=== PATIENT | female | born 1945 | race Caucasian/White ===

== ENCOUNTER → 2016-06-27 | Outpatient (CLI) | payer MEDICARE, OTHER ==
[~2016-06-27] MED LIST: ROPIVACAINE 1% 10 MG/ML (NAROPIN) 10 ML AMPUL ONE; SODIUM CHLORIDE VIAL (PF) 10 ML IV ONE; methylPREDNISolone 80 MG/ML (DEPO MEDROL) VIAL IM ONE
== END ==
LOC: PMC 11:07
PROVIDERS: ATTEND Internal Medicine
DX: M54.16 Radiculopathy, lumbar region (principal)
CPT/HCPCS: 62322; J1040; J2795; J7050

== ENCOUNTER → 2016-07-04 | Outpatient (CLI) | payer MEDICARE, OTHER | LOC: LAB 07:38 | PROVIDERS: ATTEND Internal Medicine | DX: M54.16 Radiculopathy, lumbar region (principal) | CPT/HCPCS: 36415; 82565; 84520 ==

== ENCOUNTER → 2016-07-05 | Outpatient (CLI) | payer MEDICARE, OTHER | LOC: RAD 08:21 | PROVIDERS: ATTEND Internal Medicine | DX: M54.16 Radiculopathy, lumbar region (principal); M51.36 Other intervertebral disc degeneration, lumbar region | CPT/HCPCS: 72158; A9579 ==

== ENCOUNTER → 2016-07-10 | Outpatient (CLI) | payer MEDICARE, OTHER ==
[~2016-07-10] MED LIST changes: +AML5T PO; +AMOX1TAB12 PO; +AMOX875T47 PO; +ASPI-345 PO; +ATOR40TA59 PO; +BACL10TA PO; +CALC-697 PO; +CALC600T12 PO; +CELE200C PO; +CEPH250T PO; +CHOL10002 PO; +CLOP75TA3 PO; +CLOT15CR6; +CQ 10 PO; +CYAN100072 PO; +CYCL1DRO2 PO; +DILT120C PO; +EST.1TD PO; +ESTR0.5T PO; +ESTR1TAB24 PO; +GABA300T24 PO; +GFN600TCR PO; +GUAI120013 PO; +HYDR-3811 PO; +ISOS20TA5 PO; +LOSA100T8 PO; +MAGN100T6 PO; +MGX400T PO; +MNTL10T PO; +MV,C1TAB21 PO; +NF-VITB12 PO; +NITR0.4T SL; +OMEP20TA PO; +OMG1KC PO; +PRED20TA PO; +PRM25T PO; +RANI150T15 PO; +RANITIDINE PO; -ROPIVACAINE 1% 10 MG/ML (NAROPIN) 10 ML AMPUL ONE; +SERT50TA9 PO; -SODIUM CHLORIDE VIAL (PF) 10 ML IV ONE; +SULF-221 PO; +TRAZ-28 PO; +TRAZADONE PO; +TRM50T PO; +UBID1CAP51 PO
--- NOTE | 2016-07-10 15:21 | PAIN MANAGEMENT ---
Date of note: 07/10/2016 PROCEDURE: Epidural steroid injection L5-S1 under fluoroscopy. FLUOROSCOPY EXPOSURE: 28 seconds. This is a 70-year-old patient of Dr. Gurvinder Stoll. The patient presents with spinal stenosis. She is having discomfort in the low back area in the dermatome level on the left side of L5 in particular. She was previously given a block by Michael Land CRNA for caudal approach which did not provide any relief for her. She has been on Plavix and has been off of it for 5 days. I asked her to resume her Plavix tomorrow when she takes it in the morning. Informed consent was achieved. She was taken under fluoroscopy guidance and an epidural provided at L5-S1. Orders for procedure verified. Patient denies any bleeding tendencies. After informed consent obtained, the patient was positioned for the lumbar epidural steroid injection. The area was prepped and draped using aseptic technique. The skin and overlying tissues were localized using 3 mL of 1% Preservative-Free lidocaine using a 25-gauge 1.5-inch needle. A 20-gauge Tuohy needle was advanced, using "loss of resistance" technique, to the epidural space. No blood, cerebral spinal fluid, pain, or paresthesia noted on entry of the epidural space. A 1 mL solution of Depo-Medrol 80 mg was injected slowly without mass volume effect. The patient was placed in supine position 15 minutes prior to being released with proper leg strength and vitals. Pre- and post procedure vital signs stable with no sensory or motor deficit noted. Instruction on followup contact and care provided to the patient. After the block was provided Janae asked me if her back pain could have anything to do with her recent difficulty with urinary incontinence and with bowel movement. Upon further visitation with Janae, it is apparent that this started happening about the time she started having this back pain. I tried to get a hold of Dr. Stoll's office however they are closed for a period of time now, and I will try to get a hold of whomever is covering for him in the meantime. I explained to Janae that I believe she would be well advised to see a neurosurgeon as quickly we can get her in and I will explain to the person following Dr. Stoll's patients the same thing.
--- NOTE | 2016-07-11 12:35 | Progress Note (E) ---
Progress Note Dr. Go examined Janae today and has determined a nuerosurgical consult is advisable. Aston Garcia CRNA Jul 11, 2016 12:35
--- NOTE | 2016-07-15 10:09 | Progress Note (E) ---
Progress Note Janae called yesterday. She continues to have pain and continency issues. She has a nuero appointment the end of this month. I asked her to contact Dr. Stoll today and see if he could get her appointment sooner. Aston Escalera CRNA Jul 15, 2016 10:09
== END ==
LOC: PMC 13:21
PROVIDERS: ATTEND Internal Medicine
DX: M48.07 Spinal stenosis, lumbosacral region (principal); R32 Unspecified urinary incontinence; I10 Essential (primary) hypertension; I25.10 Atherosclerotic heart disease of native coronary artery without angina pectoris; K21.9 Gastro-esophageal reflux disease without esophagitis

== ENCOUNTER → 2016-07-24 | Outpatient (CLI) | payer MEDICARE, OTHER ==
[~2016-07-24] MED LIST changes: -methylPREDNISolone 80 MG/ML (DEPO MEDROL) VIAL IM ONE
[2016-07-24 09:04] LABS: BASOPHILS % (AUTO) 0 % (0-2); EOSINOPHILS # (AUTO) 0.1 10^3uL; EOSINOPHILS % (AUTO) 1 % (0-4); LYMPHOCYTES # (AUTO) 1.1 X10^3; MEAN CORPUSCULAR HGB CONC 33.5 g/dL (31.0-37.0); MEAN CORPUSCULAR VOLUME 94 FL (80-100); MEAN PLATELET VOLUME 10.3 FL (6.0-9.5); MONOCYTES # (AUTO) 0.5 X10^3; MONOCYTES % (AUTO) 11 % (3-11); NEUTROPHILS # (AUTO) 2.9 X10^3; NEUTROPHILS % (AUTO) 64 % (51-67); PLATELET COUNT 145 10^3uL (150-450)
[2016-07-24 09:53] LABS: MEAN CORPUSCULAR HEMOGLOBIN 31.4 PG (26.0-34.0)
[2016-07-24 10:35] LABS: ALBUMIN 4.2 g/dL (3.4-5.0); ANION GAP 14.9 MEQ/L (3-15)
== END ==
LOC: LAB 08:33
PROVIDERS: ATTEND Internal Medicine
DX: Z00.00 Encounter for general adult medical examination without abnormal findings (principal); K21.9 Gastro-esophageal reflux disease without esophagitis; I10 Essential (primary) hypertension; E78.4 Other hyperlipidemia; I25.10 Atherosclerotic heart disease of native coronary artery without angina pectoris
CPT/HCPCS: 36415; 80053; 80061; 84443; 85025

== ENCOUNTER → 2016-07-25 | Outpatient (CLI) | payer MEDICARE, OTHER ==
[2016-07-25 22:46] LABS: VITAMIN B 12 854 pg/mL (213-816)
== END ==
LOC: LAB 09:46
PROVIDERS: ATTEND Electrodiagnostic Medicine
DX: R32 Unspecified urinary incontinence (principal); M54.30 Sciatica, unspecified side
CPT/HCPCS: 36415; 82607; 82746; 82784; 84155; 85652; 86038; 86334

== ENCOUNTER → 2016-07-26 | Outpatient (CLI) | payer MEDICARE, OTHER ==
--- NOTE | 2016-07-26 13:52 | Diagnostic Imaging Report ---
PROCEDURE: MR imaging cervical spine with and without contrast. TECHNIQUE: Multiplanar and multisequence MRI of the cervical spine was performed with and without contrast. INDICATION: Neck pain. Radiculopathy. COMPARISON: CT cervical spine without contrast from 10/05/2015. FINDINGS: Examination is limited by motion artifact, particularly on the axial sequences. Normal alignment of the cervical spine. Vertebral body heights are maintained. Qpbjmtyx-pe-xydnjvma scattered degenerative endplate changes. Bone marrow signal is unremarkable. No abnormal signal or enhancement in the cervical cord. The visualized paravertebral soft tissues are unremarkable. The cervical carotid and vertebral artery flow voids are preserved. C2-C3: No spinal canal or neural foraminal narrowing. C3-C4: Central disc osteophyte complex results in moderate spinal canal narrowing where it indents the ventral cervical cord. Uncovertebral and facet arthropathy contribute to mild right neural foraminal narrowing. No left neural foraminal narrowing. C4-C5: Central disc osteophyte complex results in moderate spinal canal narrowing where it indents the ventral cervical cord. No substantial neural foraminal narrowing. C5-C6: Posterior disc osteophyte complex results in oxujmkqn-ne-eltbaboo spinal canal narrowing where it flattens the ventral cervical cord. Uncovertebral and facet arthropathy contributes to mild right neural foraminal narrowing. C6-C7: Posterior disc osteophyte complex results in moderate spinal canal narrowing where it indents the left ventral cervical cord. Uncovertebral and facet arthropathy also contribute to mild left neural foraminal narrowing. C7-T1: No substantial spinal canal or neural foraminal narrowing. IMPRESSION: 1. 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 This is most marked at C5-C6 where it is moderate to advanced. There is no abnormal signal or enhancement within the cervical cord. 2. Scattered mild neural foraminal narrowing, detailed above. Dictated by: Dictated on workstation # [id number]
== END ==
LOC: RAD 11:19
PROVIDERS: ATTEND Electrodiagnostic Medicine
DX: R32 Unspecified urinary incontinence (principal); M54.30 Sciatica, unspecified side
CPT/HCPCS: 72156; A9579

== ENCOUNTER 2016-07-27 10:03 | Emergency (ER) | payer MEDICARE, OTHER ==
[~2016-07-27] VITALS: Ht 160 cm; Wt 69.1 kg
[~2016-07-27 10:03] MED LIST changes: -PRED20TA PO; -PRM25T PO
[2016-07-27 10:07] VITALS: BP 150/91
[2016-07-27] MEDS ORDERED: predniSONE 20 MG (DELTASONE) TABLET PO ONE (10:40)
[2016-07-27] MEDS ORDERED: PROMETHAZINE 25 MG/ML (PHENERGAN) 1 ML VIAL IM ONE (10:40)
[2016-07-27] MEDS ORDERED: HYDROmorphone 2 MG/ML (DILAUDID) 1 ML SYRINGE IM ONE (10:40)
[2016-07-27] MEDS ORDERED: PRED20TA PO (10:44)
[2016-07-27] MEDS ORDERED: PRM25T PO (10:44)
[2016-07-27] MEDS ORDERED: HYDR-3811 PO (10:44)
== END 2016-07-27 11:10 | disposition home or self-care (01) ==
LOC: EDUNIT# 10:03 → ED 10:05
DX: M54.42 Lumbago with sciatica, left side (principal); M48.06 Spinal stenosis, lumbar region
CPT/HCPCS: 96372; 99282; A9270; J1170; J2550; 99283

== ENCOUNTER → 2016-07-27 | Outpatient (CLI) | payer MEDICARE, OTHER ==
[2016-07-27 10:09] VITALS: BP 140/70
--- NOTE | 2016-07-27 10:09 | Urgent Care T Sheet Gen (E) ---
Intake General Temperature (Fahrenheit): 99.1 Pulse: 86 Blood Pressure Systolic: 140 Blood Pressure Diastolic: 70 Respirations: 20 SPO2: 97 Description of Symptoms Pt presents with . Pt describes pain that starts in buttocks and radiates down leg. Denies fever, redness or warmth. Pt unable to get in a comfortable position on exam table. Pt rates pain 10/10. As pt describes her symptoms and severe pain, it is evident that she needs pain relief that our facility can not provide. Discussed this with patient and , both agree that she would be better served at the Emergency Department. will drive pt to emergency department. Source: Family, Patient History of Present Illness Onset & Duration: Months Timing: Worse Severity: Severe Modifying Factors: None Associated Symptoms: None Location: Buttocks and radiates to her foot Recent Trauma: No Similar Sympotms Previously: No Allergies: Coded Allergies: lisinopril (Verified Allergy, Unknown, 10/06/15) Home Meds Active Scripts Sulfamethoxazole/Trimethoprim (Sulfamethoxazole/Trimethoprim DS 800mg/160mg)1 Each Tablet1 Each PO BID #14 TAB Prov:JERE ULLOA 02/08/16 Reported Medications Guaifenesin (Mucinex)1,200 Mg Tbmp.12hr1,200 Mg PO DAILY 12/11/15 Sertraline HCl 50 Mg Yghcgu893 Mg PO DAILY 10/06/15 Estradiol 0.5 Mg Tablet0.5 Mg PO DAILY 09/27/15 Ranitidine HCl (Zantac)150 Mg Eoeyoh313 Mg PO DAILY 01/06/15 Magnesium Citrate 100 Mg Vxnhsn903 Mg PO DAILY 01/06/15 Cyanocobalamin (Vitamin B-12) (B-12)1,000 Mcg Tablet.er1,000 Mcg PO DAILY 01/06/15 Ubidecarenone/Vit E Acetate (Co Q-10 100 mg Softgel)1 Each Capsule1 Each PO DAILY 01/06/15 Trazodone HCl 50 Mg Mmkamu00 Mg PO HS 01/06/15 Isosorbide Mononitrate 20 Mg Ulyiya61 Mg PO BID 11/23/14 Amlodipine Besylate 5 Mg Tablet5 Mg PO DAILY 11/23/14 Clopidogrel Bisulfate (Plavix)75 Mg Tablet1 Tab PO DAILY 10/16/12 Atorvastatin Calcium 40 Mg Tablet0.5 Tab PO UD 10/16/12 Mv,Ca,Min/Iron Fum/Fa/Lyco/Lut (Complete Multi Tablet)1 Each Chkfzn877 Mg PO DAILY 01/24/12 Gabapentin (Gralise)300 Mg Tab.er.04j250 Mg PO BID 01/24/12 Respiratory Constitutional Symptoms: Other (see HPI) All Other Systems Reviewed Remaining Systems: All other systems reviewed with negative findings Past Haexdwu-Ojkybv-Aolcmc Hx Patient's Social History Alcohol Use: Regularly Uses Smoking Status: Never smoker Recent foreign travel: No Surgeries/Hospitalizations Hospitalization/Surgery Hx: heart cath - with 2 stents flex sig tonsil hysterectomy laser discectomy l 4-5 cataracts recent fall and head lac colonoscopy Respiratory Respiratory History: None Comment: some dyspenia when "heart spasms" hit Cardiovascular Cardiovascular History: Hypertension, Chest Pain, Coronary Heart Disease, Hypercholesterolemia, Other, see comment Comment: coronary artery spasms, 6 stents Neuro/Muscular Neuro/Muscular History: Arthirits, Neuropathy, Back Problems, Visual impairment Comment: lumbar radiculopathy Reproductive System Sexually Transmitted Diseases: No Genitouinary Genitourinary History: None Gastrointestinal GI/Endocrine History: GERD, None Diabetes Diabetes: No HEENT Impaired Vision: Glasses Hearing Impaired: None Integumentary Integumentary History: None Cancer History of Cancer?: No Psychosocial Behavior Disorders: None Physical Exam Physical Exam General Appearance: WD/WN Moderate distress (related to pain) Departure Urgent Care Impression Impression: Primary Impression: Sciatic leg pain Departure Departed Disposition: To [facility] ED Condition: Stable Referrals: CARINA FERRELL MD (PCP) Additional Instructions: Pt was directed to go to ED for pain management. Pt's will transport. Exam not done here in clinic. Pt and agree with plan of care. End of report . LISSETTE [employer]O [employer]CH[employer]IAN Jul 27, 2016 10:09
== END ==
LOC: MHUC 09:49
PROVIDERS: ATTEND Nurse Practitioner Family
DX: Z53.8 Procedure and treatment not carried out for other reasons (principal)

== ENCOUNTER → 2016-07-31 | Outpatient (REF) | payer MEDICARE, OTHER ==
[~2016-07-31] MED LIST changes: +PRED20TA PO; +PRM25T PO
== END ==
LOC: LAB 10:26
PROVIDERS: ATTEND Internal Medicine
DX: G63 Polyneuropathy in diseases classified elsewhere (principal)
CPT/HCPCS: 82607

== ENCOUNTER → 2016-08-01 | Outpatient (CLI) | payer MEDICARE, OTHER ==
--- NOTE | 2016-08-01 10:44 | Diagnostic Imaging Report ---
CLINICAL INDICATION: Patient with sciatica. EXAM: MRI of the thoracic spine performed without and with 15 cc of ProHance IV contrast. Sequences include sagittal T1, sagittal T1 fat-sat, sagittal T2, sagittal stir, axial T2, axial T1, axial T1 post IV contrast fat-sat, and sagittal T1 fat-sat post IV contrast. COMPARISON: None. FINDINGS: There is no abnormal IV contrast enhancement seen on this exam. Thoracic spine has normal alignment with no fracture or dislocation. There is a chronic compression deformity involving the upper endplate of the T11 vertebral body. There is no abnormal paraspinal soft tissue signal or abnormality. The thoracic spinal cord has normal anatomic appearance with no abnormal cord signal. The thoracic vertebra have normal signal characteristics. The intervertebral disk heights are well-preserved. There is moderate facet arthropathy seen throughout the thoracic spine which is most pronounced at the T8 through T11 levels. There is a small T1-T2 posterior disc bulge. There is a small right paracentral T12-L1 posterior disc bulge. There is wprr-hi-hcndpcpr bilateral neural foramen narrowing at the T8 through T11 levels. There is mild to moderate central canal narrowing at the T9-T10 level, and T10-T11 level and mild central canal narrowing at the T8-T9 level, predominantly due to facet arthropathy. IMPRESSION: 1: There is no abnormal IV contrast enhancement. There is no acute thoracic spine fracture or dislocation. 2: There is multilevel thoracic spine degenerative disease which is worse involving the T8 through T11 levels, as described above. There is associated rksx-vf-tehulcmj central canal narrowing and bilateral neural foramen narrowing at these levels. 3: There is a mild chronic compression deformity of the upper endplate of the T11 vertebral body. Dictated by: Dictated on workstation # [id number]
== END ==
LOC: RAD 08:08
PROVIDERS: ATTEND Electrodiagnostic Medicine
DX: M54.30 Sciatica, unspecified side (principal); M51.34 Other intervertebral disc degeneration, thoracic region
CPT/HCPCS: 72157; A9579

== ENCOUNTER → 2016-08-06 | Outpatient (CLI) | payer MEDICARE, OTHER ==
--- NOTE | 2016-08-06 11:45 | Diagnostic Imaging Report ---
Indication: 70-year-old postmenopausal female for screening osteoporosis. Comparison: 04/28/12. Technique: DEXA of the lumbar spine and bilateral hips was performed. Findings: The L2-L4 vertebrae were used for assessment of the lumbar spine, to remain consistent with prior examination. The bone mineral density for the total lumbar spine is 1.578 g/cm2, and the T score is 3.1, and Z-score is 4.8 . The left femoral neck has a bone density of 0.885 g/cm2, and the T score is -0.8, and Z-score is 0.9 . The right femoral neck has a bone density of 0.892 g/cm2, and the T score is -0.7, and Z-score is 0.9 . The bone marrow density evaluation of the lumbar spine is likely falsely elevated due to degenerative sclerotic changes. The hips more likely provided better characterization of the bone mineral density. Impression: 1. Normal bone mineral density. Dictated by: Dictated on workstation # [id number]
--- NOTE | 2016-08-07 18:46 | Diagnostic Imaging Report ---
DIG REFUGIO BILAT SCREEN W CAD COMPARISON: 11/04/2014 and 06/03/2013. INDICATION: Screening mammography. TECHNIQUE: Digital screening mammography was obtained with a computer-aided detection (CAD) system. FINDINGS: The breasts are almost entirely fatty. No dominant mass, suspicious microcalcifications or architectural distortion to suggest malignancy. IMPRESSION: Stable mammogram without evidence of malignancy. Followup screening mammogram in 12 months is recommended. ACR BI-RADS Category 1: Negative. Result letter will be mailed to the patient. Note: At least 10% of breast cancer is not imaged by mammography. Dictated by: Dictated on workstation # [id number]
== END ==
LOC: RAD 10:22
PROVIDERS: ATTEND Internal Medicine
DX: Z12.31 Encounter for screening mammogram for malignant neoplasm of breast (principal); Z78.0 Asymptomatic menopausal state
CPT/HCPCS: 77080; G0202

== ENCOUNTER → 2016-08-22 | Outpatient (CLI) | payer MEDICARE, OTHER ==
[~2016-08-22] MED LIST changes: +methylPREDNISolone 80 MG/ML (DEPO MEDROL) VIAL IM ONE
--- NOTE | 2016-08-22 14:51 | PAIN MANAGEMENT ---
Date of note: 08/22/2016 Procedure: Transforaminal epidural steroid injection Total fluoroscopic exposure time: 1 minute and 7 seconds This is a 70-year-old patient of Dr. Adonis Castillo in [place], [place]. The patient presents for number 3 in a series of epidural injections. I have been requested to provide a transforaminal epidural injection on the left side at L4-5. Informed consent was achieved. She was placed in the prone position. Informed consent was achieved. The patient was placed in prone position in the treatment room with fluoroscopy. The oblique view revealed the posterolateral aspect of the target pedicle. The area was prepped and draped using aseptic technique. The skin and overlying tissues were localized using 3 ml of 1% PF lidocaine using a 25-gauge 1.5-inch needle. A 25 gauge spinal needle was advanced to the inferior border of the lamina. Lateral confirmation of the needle tip was dorsal to the foramen. The needle was walked off inferolateral to the foramen. Aspiration for CSF and heme were negative. Isovue 240, 0.5 ml was injected with proper placement confirmed and no vascular uptake. AP view revealed spread of contrast medially. The patient was given 1 mL of Depo-Medrol 80 mg in the transforaminal space. The patient was taken to the ASC and released after approximately 15 minutes with proper arm strength and vitals. I have asked the patient to call me in 3 days. I will follow their progress.
== END ==
LOC: PMC 11:16 → EDSTATUS 11:30
DX: M54.16 Radiculopathy, lumbar region (principal)
CPT/HCPCS: 64483; J1040